=== PATIENT | female | born 1990 | race African-American/Black ===

== ENCOUNTER 2017-01-25 15:48 | Emergency (ER) | payer OTHER ==
[~2017-01-25 15:48] MED LIST: AMOXICILLIN500 M1 PO; AUGMENTIN875 MG PO; BENZONATATE PO; FAMOTIDINE PO; NAPROXEN PO; NASACORT AQ16.5 GM; NO MEDICATIONS; PEPCID PO; PHENERGAN25 MG PO; PREDNISONE PO; PRENATAL1 TA1 PO; TOPROL XL PO; TYLENOL #3 PO
== END 2017-01-25 15:50 | disposition home or self-care (01) ==
LOC: SED 15:48
DX: H66.92 Otitis media, unspecified, left ear (principal)
CPT/HCPCS: 99282